=== PATIENT | female | born 1995 | race Caucasian/White ===

== ENCOUNTER 2016-07-01 16:07 | Emergency (ER) | payer OTHER ==
[~2016-07-01] VITALS: Ht 149.9 cm; Wt 73.9 kg
[2016-07-01 16:12] VITALS: BP 104/71
--- NOTE | 2016-07-01 16:48 | RADIOLOGY REPORT ---
EXAMINATION: XR ANKLE, RIGHT CLINICAL INFORMATION: Injury to right ankle. Pain. COMPARISON: None TECHNIQUE: Right ankle 3 views. of the right ankle. FINDINGS: The bones and soft tissues are normal. No fracture. Alignment is anatomic. Joint spaces are maintained. No joint effusion. IMPRESSION: Normal right ankle.
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
== END 2016-07-01 19:01 ==
LOC: ERH 16:07
DX: S93.401A Sprain of unspecified ligament of right ankle, initial encounter (principal); V48.4XXA Person boarding or alighting a car injured in noncollision transport accident, initial encounter
CPT/HCPCS: 73610-RT

== ENCOUNTER 2016-07-17 00:56 | Emergency (ER) | payer OTHER ==
[~2016-07-17] VITALS: Ht 149.9 cm; Wt 83.9 kg
--- NOTE | 2016-07-17 02:19 | ED HEAD/FACIAL INJ COMPLAINT ---
History of Present Illness General Chief Complaint: Laceration Procedure Stated Complaint: LAC TO TOP OF HEAD Source: patient Exam Limitations: no limitations Vital Signs & Intake/Output Vital Signs & Intake/Output Vital Signs Date Time Temp Pulse Resp B/P Pulse O2 O2 Flow FiO2 Ox Delivery Rate 07/17 0123 97.0 80 18 125/87 100 Room Air Allergies Coded Allergies: NO KNOWN ALLERGIES (07/01/16) Reconcile Medications No Known Home Medications Triage Note: PT FROM HOME C/O LAC TO TOP OF HEAD, PT STATES THAT AT WORK A FEW HOURS AGO SHE WAS MOVING AROUND AND HIT HER HEAD ON A CIGARETTE TREJO THAT WAS METAL AND THAT CAUSE HER HEAD TO HAVE A LAC. PT DENIES LOC. Triage Nurses Notes Reviewed? yes Onset: Abrupt Severity: mild Method of Injury: HIT HEAD ON CIGARETTE JOHN Loss of Consciousness: no loss of consciousness : No Patient currently breastfeeds: No HPI: 20 year old female presents to the ER for chief complaint of cut to the top of her head while at work at 7:20 pm. No loss of consciousness. Tetanus not up to date. She cut the top of her head on a metal cigarette box. She reports she is feeling kind of slow. Past History Travel History Traveled to [place] past 21 day No Medical History Any Pertinent Medical History? 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 No Review of Systems Review of Systems Constitutional: Denies: chills, fever. Physical Exam Physical Exam General Appearance: well developed/nourished, alert Head: ABRASION TO TOP OF HEAD Eyes: Bilateral: normal appearance, PERRL, EOMI. Ears, Nose, Throat: normal pharynx, normal ENT inspection, hearing grossly normal Neck: normal inspection, supple, full range of motion Respiratory: normal breath sounds, chest non-tender, no respiratory distress Cardiovascular: regular rate/rhythm Gastrointestinal: normal bowel sounds, soft, non-tender Back: normal inspection, normal range of motion Extremities: normal inspection, normal capillary refill, normal range of motion, no edema Psychiatric: awake, alert, oriented x 3 Cranial Nerves: normal hearing, normal speech, PERRL Coordination/Gait: normal gait Skin: intact Diagram Head: 1) ABRASION Progress Differential Diagnosis: ABRASION, CONCUSSION Plan of Care: Current Medications Sig/Alber Start time Last Medication Dose Stop Time Status Admin Ibuprofen 800 MG ONCE ONE 07/17 229 UNVr (Motrin) 07/17 230 Tetanus/Diphtheria 0.5 ML ONCE ONE 07/17 229 UNVr Toxoids Adsorbed 07/17 230 (Decavac) Departure Departure Time of Disposition: 227 Disposition: HOME OR SELF CARE Condition: Stable Clinical Impression Primary Impression: Scalp abrasion Secondary Impressions: Mild concussion Referrals: MIGUEL STANFORD,ROSALIO Casiano (PCP/Family) Additional Instructions: Take Advil as needed for pain. Put topical antibiotic ointment as prescribed. Return to the ER as needed. Departure Forms: Customer Survey General Discharge Information Prescriptions: Current Visit Scripts No Known Home Medications
[2016-07-17 02:41] VITALS: BP 128/74
== END 2016-07-17 02:42 ==
LOC: ERH 00:56
DX: S00.01XA Abrasion of scalp, initial encounter (principal); S06.0X0A Concussion without loss of consciousness, initial encounter; W22.09XA Striking against other stationary object, initial encounter
CPT/HCPCS: 90471; 90714

== ENCOUNTER 2016-07-24 00:44 | Emergency (ER) | payer OTHER ==
[2016-07-24] MEDS ORDERED: PERPHENAZINE4 M1 PO (00:58)
--- NOTE | 2016-07-24 02:24 | ED GENERAL ADULT ---
History of Present Illness General Chief Complaint: General Adult Stated Complaint: BIBA BIPOLAR, ANXIETY Source: patient, family Exam Limitations: no limitations Vital Signs & Intake/Output Vital Signs & Intake/Output Vital Signs Date Time Temp Pulse Resp B/P Pulse O2 O2 Flow FiO2 Ox Delivery Rate 07/24 0053 97.4 76 18 100/60 Allergies Coded Allergies: NO KNOWN ALLERGIES (07/01/16) Reconcile Medications Perphenazine 4 MG TABLET 4 MG PO D MENTAL HEALTH (Reported) Triage Note: ARRIVED ER VIA AMBULANCE PT STATES SHE WAS SITTING ON THE BATHROOM FLOOR BECAUSE SHE WAS NAUSEOUS AND THOUGHT SHE WAS GOING TO VOMIT AND SHE BEGAN SHAKING. REMEMBERS ENTIRE INCIDENT. PT RECENTLY STARTED TRILAFON AND THEY WHERE TOLD A POSSIBLE SIDE EFFECT WAS SEIZURE .PT IS TWITCHING SHOULDERS STATES THIS IS NOT NEW Triage Nurses Notes Reviewed? yes : No Patient currently breastfeeds: No HPI: Patient presents for evaluation of a headache and nausea status that began at about 11:00 last night, gradual in onset. Patient states in fact that her headache is now feeling better decreasing from about a 7 out of 10 to a 3 out of 10 currently. The headache feels like a numbness throbbing and pounding located in the bilateral forehead and apex. She denies any associated fever, cold symptoms, vomiting, diarrhea, rashes, recent travel or known ill contacts. She has had a diffuse abdominal pain in association with the nausea. Patient states that she does gets relatively frequent common headaches. Past History Travel History Traveled to [place] past 21 day No Medical History Any Pertinent Medical History? 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 No Review of Systems Review of Systems Constitutional: Reports: no symptoms. EENTM: Reports: no symptoms. Respiratory: Reports: no symptoms. Cardiovascular: Reports: no symptoms. GI: Reports: see HPI. Genitourinary: Reports: no symptoms. Musculoskeletal: Reports: no symptoms. Skin: Reports: no symptoms. Neurological/Psychological: Reports: see HPI. Hematologic/Endocrine: Reports: no symptoms. Immunologic/Allergic: Reports: no symptoms. All Other Systems: Reviewed and Negative Physical Exam Physical Exam General Appearance: SEE BELOW Comments: Gen.: Well-nourished, well-developed, no acute respiratory distress. Head: Normocephalic, atraumatic. Eyes: Normal inspection bilaterally Ears: Normal inspection bilaterally Nose: Normal inspection Throat/mouth : Moist mucosa Neck: Supple, full range of motion, no goiter Heart: Regular rate and rhythm, no murmurs rubs or gallops Lungs: Clear to auscultation bilaterally with normal air entry Chest: Nontender Back: Normal range of motion Abdomen: Soft, nontender, nondistended, normal bowel sounds Extremities: Normal range of motion grossly, equal radial pulses, no cyanosis clubbing or edema Neurologic: Cranial nerves grossly intact, speech is clear Skin: warm and dry Psychiatric: Calm, cooperative, no apparent delusions or hallucinations Core Measures ACS in differential dx? No CVA/TIA Diagnosis: No Severe Sepsis Present: No Septic Shock Present: No Progress Differential Diagnoses I considered the following diagnoses in my evaluation of the patient: Common headache, migraine headache, medication side effect Plan of Care: Current Medications Sig/Alber Start time Last Medication Dose Stop Time Status Admin Promethazine HCl 25 MG ONCE ONE 07/24 229 UNVr (Phenergen) 07/24 230 Initial ED EKG: none Comments: 07/24/2016 3:43:44 AM Zeina is asleep and her father feels that she is much more comfortable now. Departure Departure Disposition: HOME OR SELF CARE Condition: Stable Clinical Impression Primary Impression: Headache Qualifiers: Headache type: unspecified Headache chronicity pattern: acute headache Intractability: not intractable Qualified Code: R51 - Headache Referrals: MIGUEL STANFORD,ROSALIO Casiano (PCP/Family) Additional Instructions: Get a few more hours of sleep. Follow-up with your primary care doctor tomorrow if her headache persists. Return if any concerns or sudden worsening. Departure Forms: Customer Survey General Discharge Information Critical Care Note Critical Care Note Critical Care Time: non-applicable
[2016-07-24 03:59] VITALS: BP 104/62
== END 2016-07-24 04:00 ==
LOC: ERH 00:44
DX: R51 Headache (principal); R11.0 Nausea
CPT/HCPCS: 96372; J2550

== ENCOUNTER 2016-08-02 23:56 | Emergency (ER) | payer OTHER ==
[~2016-08-02] VITALS: Ht 149.9 cm; Wt 82.6 kg
[~2016-08-02 23:56] MED LIST: PERPHENAZINE4 M1 PO
--- NOTE | 2016-08-03 01:05 | ED GENERAL ADULT ---
History of Present Illness General Chief Complaint: General Adult Stated Complaint: PT "TWITCHING" FULL BODY Source: patient, old records, friend Exam Limitations: no limitations Vital Signs & Intake/Output Vital Signs & Intake/Output Vital Signs Date Time Temp Pulse Resp B/P Pulse O2 O2 Flow FiO2 Ox Delivery Rate 08/03 0112 97.5 87 16 103/77 96 Allergies Coded Allergies: NO KNOWN ALLERGIES (07/01/16) Reconcile Medications Perphenazine 4 MG TABLET 4 MG PO D MENTAL HEALTH (Reported) Triage Nurses Notes Reviewed? yes HPI: Patient was laying in bed when she suddenly began to shake all over. Patient was cognizant of everything that was going on and was able to communicate with her boyfriend as well as her parents during the episode. Similar symptoms in the past. The shaking lasted for over 20 minutes so she decided to come in to the emergency room for evaluation. While in the waiting room the shaking episode stopped. There is no incontinence. Patient denies any headache. Patient states that she has been under a lot of stress lately. Patient has been working with her therapist but her therapist also wants her to see a neurologist to rule out neurological causes of these episodes. Denies any suicidal or homicidal ideations. Past History Medical History Any Pertinent Medical History? 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 No Review of Systems Review of Systems Constitutional: Reports: no symptoms. Respiratory: Reports: no symptoms. Cardiovascular: Reports: no symptoms. GI: Reports: no symptoms. Musculoskeletal: Reports: no symptoms. Neurological/Psychological: Reports: see HPI. Immunologic/Allergic: Reports: no symptoms. Physical Exam Physical Exam General Appearance: well developed/nourished, alert, awake, anxious, mild distress Head: atraumatic Eyes: Bilateral: PERRL, EOMI. Ears, Nose, Throat: normal pharynx, normal ENT inspection, hearing grossly normal Neck: normal inspection, supple, full range of motion Respiratory: normal breath sounds, chest non-tender, no respiratory distress, lungs clear Cardiovascular: regular rate/rhythm, normal peripheral pulses Gastrointestinal: normal bowel sounds, soft, non-tender, no organomegaly Back: normal inspection Extremities: normal inspection, normal capillary refill, normal range of motion, no edema Neurologic/Psych: no motor/sensory deficits, awake, alert, oriented x 3, normal gait, normal mood/affect Skin: intact, normal color, warm/dry Core Measures ACS in differential dx? No CVA/TIA Diagnosis: No Severe Sepsis Present: No Septic Shock Present: No Progress Differential Diagnoses I considered the following diagnoses in my evaluation of the patient: [Episodic shaking of neurological first psychological origin] Plan of Care: Orders Procedure Date/time Status URINE DRUG SCREEN FOR ER ONLY 08/03 58 Complete URINALYSIS 08/03 58 Active THYROID STIMULATING HORMONE 08/03 58 Complete HUMAN BETA HCG SCREEN 08/03 58 Complete ETHANOL 08/03 58 Complete COMPREHENSIVE METABOLIC PANEL 08/03 58 Complete CBC WITHOUT DIFFERENTIAL 08/03 58 Complete Laboratory Tests 08/03/16 0120: Serum Alcohol < 10.0 08/03/16 0120: Anion Gap 8, Estimated GFR > 60, BUN/Creatinine Ratio 17.5, Glucose 89, Calcium 9.7, Total Bilirubin 0.3, AST 24, ALT 37, Alkaline Phosphatase 70, Total Protein 6.9, Albumin 4.1, Globulin 2.8, Albumin/Globulin Ratio 1.5, TSH 2.040, Total Beta HCG NEGATIVE, CBC w Diff NO MAN DIFF REQ, RBC 4.70, MCV 78.5 L, MCH 27.5, RDW 12.7, MPV 8.9, Gran % 52.2, Lymphocytes % 40.6, Monocytes % 4.8, Eosinophils % 2.1, Basophils % 0.3, Absolute Granulocytes 4.8, Absolute Lymphocytes 3.7 H, Absolute Monocytes 0.4, Absolute Eosinophils 0.2, Absolute Basophils 0, PUBS MCHC 35.1, Urine Opiates Screen < 100.00, Methadone Screen < 40, Barbiturate Screen < 60, Ur Phencyclidine Scrn < 6.00, Amphetamines Screen < 100, U Benzodiazepines Scrn < 85, Urine Cocaine Screen < 50, Urine Cannabis Screen 5.50 , Urine Color Pending, Urine Clarity Pending, Urine pH Pending, Ur Specific [place] Pending, Urine Protein Pending, Urine Ketones Pending, Urine Nitrite Pending, Urine Bilirubin Pending, Urine Urobilinogen Pending, Ur Leukocyte Esterase Pending, Ur Microscopic Pending, Urine Hemoglobin Pending, Urine Glucose Pending Initial ED EKG: none Departure Departure Disposition: HOME OR SELF CARE Condition: Stable Clinical Impression Primary Impression: Shaking Referrals: MARY BETH STANFORD,BROOKE RIVERA MD,ROSALIO Casiano (PCP/Family) Additional Instructions: FOLLOW UP WITH DR. CLINTON TO EVALUATED NEUROLOGICAL CAUSES. FOLLOW UP WITH YOUR THERAPIST RETURN IF SHAKING STARTS AGAIN AND LASTS FOR MORE THAN 10 MINUTES OR FOR ANY CONCERNS Departure Forms: Customer Survey General Discharge Information Critical Care Note Critical Care Note Critical Care Time: non-applicable
[2016-08-03 01:34] LABS: ABSOLUTE BASOPHIL COUNT 0 /CUMM (0.0-0.2); ABSOLUTE EOSINOPHIL COUNT 0.2 /CUMM (0.0-0.7); ABSOLUTE GRANULOCYTE CT 4.8 /CUMM (1.4-6.5); ABSOLUTE LYMPH COUNT 3.7 /CUMM (1.2-3.4); ABSOLUTE MONOCYTE COUNT 0.4 /CUMM (0.10-0.60); BASOPHIL % 0.3 % (0.0-2.0); EOSINOPHIL % 2.1 % (0-5); GRANULOCYTE % 52.2 % (42.2-75.2); HEMATOCRIT 36.9 % (37-47); MEAN CORPUSCULAR HGB 27.5 PG (27.0-31.0); MEAN CORPUSCULAR HGB CONC 35.1 G/DL (33.0-37.0); MEAN CORPUSCULAR VOLUME 78.5 FL (81.0-99.0); MEAN PLATELET VOLUME 8.9 FL (7.4-10.4); PLATELET COUNT 253 /CUMM (130-400); RBC DISTRIBUTION WIDTH 12.7 % (11.5-14.5); WHITE BLOOD CELL COUNT 9.2 /CUMM (4.8-10.8)
[2016-08-03 03:05] VITALS: BP 111/69
== END 2016-08-03 03:22 ==
LOC: ERH 23:56
PROVIDERS: Emergency Medicine
DX: R25.1 Tremor, unspecified (principal); F10.10 Alcohol abuse, uncomplicated
CPT/HCPCS: 80307; 81001; G0480

== ENCOUNTER 2016-08-06 14:32 | Emergency (ER) | payer OTHER ==
[~2016-08-06] VITALS: Ht 149.9 cm; Wt 83.5 kg
--- NOTE | 2016-08-06 15:36 | ED PSYCHIATRIC COMPLAINT ---
History of Present Illness General Chief Complaint: General Adult Stated Complaint: ANXIETY; PANIC ATTACK Source: patient Exam Limitations: no limitations Vital Signs & Intake/Output Vital Signs & Intake/Output Vital Signs Date Time Temp Pulse Resp B/P Pulse O2 O2 Flow FiO2 Ox Delivery Rate 08/06 1701 98.0 77 18 118/78 99 Room Air 08/06 1445 98.6 106 16 122/85 100 Room Air ED Intake and Output 08/07 0000 08/06 1200 Intake Total Output Total Balance Patient 184 lb Weight Allergies Coded Allergies: NO KNOWN ALLERGIES (07/01/16) Reconcile Medications Perphenazine 4 MG TABLET 4 MG PO D MENTAL HEALTH (Reported) Triage Note: PT TO ED FOR ANXIETY, REPORTING SHE SAW AN OLD FRIEND WHO SHE PREVIOUSLY HAD ROMANTIC FEELINGS FOR AND "I NEVER GOT CLOSURE AND HE WANTS NOTHING TO DO WITH ME SO IT KIND OF ALL JUST CAME OUT" PT VERY TEARFUL IN TRIAGE, HYPERVENTILATING, ABLE TO VERBALLY DEESCALATE PATIENT. PT'S FATHER BROUGHT HER TO ED "AND I DONT WANT HIM HERE BECAUSE HE THINK THIS IS ALL FROM ME SMOKING WEED LAST NIGHT" PT DENIES SI/HI, AH/VH. Triage Nurses Notes Reviewed? yes : No Patient currently breastfeeds: No HPI: 20 yo F PMH Bipolar Disorder presenting with anxiety, tachypnea. 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 Patient had co-worker call EMS, symptoms self-resolved en route to ED. Patient has had more mild epsiodes in the past with hyperventilation and nervousness. No complaints at this time, denies fevers, chills, CP, SOB, palpitations, AP, N/V, LE swelling/ pain. Patient denies SI, plan, intent, no prior Hx of SI or suicide attempts, no FH of suicide, patient is future oriented. Denies recent manic Sx, AH, VH, HI. Sees outpatient therapist and [facility]S [facility]RICATOR and [facility], no medications. Denies recent EtOH, Marijuana use 2-3x per week, last used last night. Lives with mother and father, feels safe at home. (CHANDRAKANT DAVIS MD) Past History Travel History Traveled to [place] past 21 day No Medical History Any Pertinent Medical History? 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 Yes (CHANDRAKANT DAVIS MD) Review of Systems Review of Systems Constitutional: Reports: no symptoms. EENTM: Reports: no symptoms. Respiratory: Reports: short of breath. Denies: cough, orthopnea, sputum production, wheezing. Cardiovascular: Reports: palpitations. Denies: chest pain, orthopena, peripheral edema, syncope. GI: Reports: no symptoms. Genitourinary: Reports: no symptoms. Musculoskeletal: Reports: no symptoms. Skin: Reports: no symptoms. Neurological/Psychological: Reports: depressed, numbness, tingling, tremors. Denies: headache. Hematologic/Endocrine: Reports: no symptoms. Immunologic/Allergic: Reports: no symptoms. All Other Systems: Reviewed and Negative (CHANDRAKANT DAVIS MD) Physical Exam Physical Exam General Appearance: well developed/nourished, no apparent distress, alert, awake Head: atraumatic Eyes: Bilateral: normal appearance. Ears, Nose, Throat: normal pharynx, normal ENT inspection Neck: normal inspection, supple, full range of motion Respiratory: normal breath sounds, no respiratory distress, lungs clear Cardiovascular: regular rate/rhythm, normal peripheral pulses Neurological/Psychiatric: no motor/sensory deficits, awake, alert, normal mood/ affect, calm, rib knitter II-XII nml as tested Appearance/Memory/Insight: appropriate appearance Behavoir/Eye Contact/Speech: cooperative, normal speech, good eye contact Thoughts/Hallucinations: normal thought pattern, no apparent hallucination, Denie SI, HI, plan, intent SAD PERSONS Done? patient not suicidal (CHANDRAKANT DAVIS MD) Progress Differential Diagnosis: Anxiety, Panic attack, Stres response, Low concern for PE, PTX, or other organic etiology Plan of Care: Physician MDM: 20 yo F presenting with anxiety, hyperventilation. HR 90s during examination, VSS, remainder of exam as above. DDx: Anxiety, Panic attack, stress response, low concern for PTX, PE, PNA or other organic eriology of Sx. Monitored in ED without reoccurance of Sx. Symptomatic management of panic attacks (acute and chronic meds) discussed with patient and mother, plan to f/u with outpatient providers at [facility] in the next 2-3 days for further evaluation and management. Patient denies SI, plan, or intent to multiple providers, she does not pose an acute threat to herself or others. D/Rich with return precautions. D/W Dr. Puri. (SUSAN STANFORD,CHANDRAKANT) Departure Departure Disposition: HOME OR SELF CARE Condition: Stable Clinical Impression Primary Impression: Panic attack as reaction to stress Referrals: LASHA CALDERÓN,ANTOINETTE RIVERA MD,ROSALIO Casiano (PCP/Family) Additional Instructions: Follow up with Antoinette Loza in the next 2-3 days to discuss your panic attack. Return to the ED for any new, worsening, or concerning symptoms. Departure Forms: Customer Survey General Discharge Information (SUSAN STANFORD,HCANDRAKANT) PA/[employer] Co-Sign Statement Statement: ED Attending supervision documentation- [] I saw and evaluated the patient. I have also reviewed all the pertinent lab results and diagnostic results. I agree with the findings and the plan of care as documented in the PA's/MILLER KILN D[employer] S[employer]'s documentation. [X] I have reviewed the ED Record and agree with the PA's/MILL[employer] KILN [employer]'s documentation. [] Additions or exceptions (if any) to the PAs/MILLER KILN DRI[employer] SALT's note and plan are summarized below: [] Resident Co-Sign Statement Statement: ED Attending supervision documentation- [X] I saw and evaluated the patient. I have also reviewed all the pertinent lab results and diagnostic results. I agree with the findings and the plan of care as documented in the Resident's documentation. [X] I have reviewed the ED Record and agree with the Resident's documentation. [] Additions or exceptions (if any) to the Resident's note and plan are summarized below: [] (MAITE STANFORD,MARÍA)
[2016-08-06 17:01] VITALS: BP 118/78
== END 2016-08-06 17:01 ==
LOC: ERH 14:32
DX: F43.0 Acute stress reaction (principal)

== ENCOUNTER 2016-08-17 02:06 | Emergency (ER) | payer OTHER ==
[2016-08-17 02:08] VITALS: BP 142/82
--- NOTE | 2016-08-17 02:15 | ED GENERAL ADULT ---
History of Present Illness General Chief Complaint: General Adult Stated Complaint: BIBA ANXIETY, ?SYNCOPE Source: patient Exam Limitations: no limitations Vital Signs & Intake/Output Vital Signs & Intake/Output Vital Signs Date Time Temp Pulse Resp B/P Pulse O2 O2 Flow FiO2 Ox Delivery Rate 08/17 0253 Room Air 08/17 0208 97.2 97 18 142/82 98 Room Air Allergies Coded Allergies: NO KNOWN ALLERGIES (07/01/16) Reconcile Medications Perphenazine 4 MG TABLET 4 MG PO D MENTAL HEALTH (Reported) Triage Nurses Notes Reviewed? yes Onset: Abrupt Duration: minute(s): Timing: single episode today Injury Environment: neighbor's Severity: moderate Modifying Factors: Improves With: rest. Associated Symptoms: "I have really bad anxiety." : No Patient currently breastfeeds: No HPI: 20-year-old woman history of anxiety, followed by a counselor, presents with an episode of syncope. She states that she was sitting on the sofa. Her friends were smoking. She states, "the smoke really bothers me. My panic is really bad. I think I had a panic attack. I passed out briefly. Now I feel fine. I wanted go home." He had no chest pain shortness of breath diaphoresis or palpitations. She states this has happened to her before. The workup had thus far been unremarkable. Past History Travel History Traveled to [place] past 21 day No Medical History Any Pertinent Medical History? 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 No Review of Systems Review of Systems Constitutional: Reports: no symptoms. EENTM: Reports: no symptoms. Respiratory: Reports: no symptoms. Cardiovascular: Reports: no symptoms. GI: Reports: no symptoms. Genitourinary: Reports: no symptoms. Musculoskeletal: Reports: no symptoms. Skin: Reports: no symptoms. Neurological/Psychological: Reports: no symptoms. Hematologic/Endocrine: Reports: no symptoms. Immunologic/Allergic: Reports: no symptoms. All Other Systems: Reviewed and Negative Physical Exam Physical Exam General Appearance: well developed/nourished, no apparent distress, alert, anxious Head: atraumatic, normal appearance Eyes: Bilateral: normal appearance, PERRL, EOMI. Ears, Nose, Throat: normal pharynx, normal ENT inspection Neck: normal inspection, supple, full range of motion Respiratory: normal breath sounds, chest non-tender, no respiratory distress, quiet respiration, lungs clear Cardiovascular: regular rate/rhythm Gastrointestinal: normal bowel sounds, soft, non-tender, no organomegaly Back: normal inspection, normal range of motion Extremities: normal inspection Neurologic/Psych: no motor/sensory deficits, awake, alert, oriented x 3 Skin: intact, normal color, warm/dry Core Measures ACS in differential dx? No CVA/TIA Diagnosis: No Severe Sepsis Present: No Septic Shock Present: No Progress Differential Diagnoses I considered the following diagnoses in my evaluation of the patient: Vasovagal episode versus seizure versus syncope versus other. Plan of Care: Orders Procedure Date/time Status EKG 08/17 214 Active Initial ED EKG: normal axis, normal intervals, normal p-waves, normal QRS complex, normal sinus rhythm Departure Departure Disposition: HOME OR SELF CARE Condition: Stable Clinical Impression Primary Impression: Panic attack Secondary Impressions: Vasovagal syncope Referrals: MIGUEL STANFORD,ROSALIO Casiano (PCP/Family) Departure Forms: Customer Survey General Discharge Information Comments Patient feels well in the ED. This is similar to her prior episodes. EKG benign. I advocated close follow-up with her primary care doctor, her counselor , her neurologist. Critical Care Note Critical Care Note Critical Care Time: non-applicable
--- NOTE | 2016-08-25 17:18 | OP PSYCH DISCHARGE ---
OUTPATIENT PSYCH DISCHARGE FIRST APPOINTMENT DATE: 06/01/12 LAST CONTACT DATE: 04/24/15 FOCUS OF TREATMENT- SYMPTOMS/ISSUES: Depression Anxiety TOTAL NUMBER OF SESSIONS: > 20 SESSIONS TYPE OF TREATMENT: INDIVIDUAL, THERAPY GROUP, MEDICATION STATUS OF LAST CONTACT: FOCUS OF TREATMENT WAS: MODERATE IMPROVEMENT, MINIMAL IMPROVEMENT REASON FOR DISCHARGE: Changed to a differrent level of care, more suitable to her needs DSM5/PS Stressors/Medical Prob Diagnosis' (DSM 5, Stressors, Medical): Unspecified Depressive Disorder JD Obese Current GAF: 50% Medication List Current Psychiatric Med(s): Abilify 20 mg po daily Lexapro 20 mg po daily
== END 2016-08-17 03:05 ==
LOC: ERH 02:06
DX: F41.0 Panic disorder [episodic paroxysmal anxiety] (principal); R55 Syncope and collapse
CPT/HCPCS: 93005; 93010

== ENCOUNTER 2016-09-02 19:24 | Emergency (ER) | payer OTHER ==
[~2016-09-02] VITALS: Ht 147.3 cm; Wt 77.1 kg
--- NOTE | 2016-09-02 19:57 | ED GENERAL ADULT ---
History of Present Illness General Chief Complaint: General Adult Stated Complaint: PT IS HAVING PROBLEM BREATHING,SHAKING, Source: patient Exam Limitations: no limitations Vital Signs & Intake/Output Vital Signs & Intake/Output Vital Signs Date Time Temp Pulse Resp B/P Pulse O2 O2 Flow FiO2 Ox Delivery Rate 09/03 1947 Room Air 09/02 1933 97.8 88 24 97 ED Intake and Output 09/03 0000 09/02 1200 Intake Total 0 Output Total Balance 0 Intake, Oral 0 Patient 170 lb Weight Allergies Coded Allergies: NO KNOWN ALLERGIES (07/01/16) Reconcile Medications Perphenazine 4 MG TABLET 4 MG PO D MENTAL HEALTH (Reported) Triage Note: PER PT ?ANXIETY ATTACK. FEELING TREMORS AND WON'T STOP. HANDS TWITHCHING PT DENIES CP Triage Nurses Notes Reviewed? yes : No Patient currently breastfeeds: No HPI: 20 yo woman presents after an episode whee se fell safitiaee had an episode, lasted a few minutes, and self resolved. She now feels well and would like to go home. She denies drug abuse, SI/HI. She wishes to leave in the company of her [employer]. Past History Travel History Traveled to [place] past 21 day No Medical History Any Pertinent Medical History? 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 No Review of Systems Review of Systems Constitutional: Reports: no symptoms. EENTM: Reports: no symptoms. Respiratory: Reports: no symptoms. Cardiovascular: Reports: no symptoms. GI: Reports: no symptoms. Genitourinary: Reports: no symptoms. Musculoskeletal: Reports: no symptoms. Skin: Reports: no symptoms. Neurological/Psychological: Reports: no symptoms. Hematologic/Endocrine: Reports: no symptoms. Immunologic/Allergic: Reports: no symptoms. All Other Systems: Reviewed and Negative Physical Exam Physical Exam General Appearance: well developed/nourished, no apparent distress, alert, comfortable Head: atraumatic, normal appearance Eyes: Bilateral: normal appearance. Ears, Nose, Throat: normal pharynx, normal ENT inspection Neck: normal inspection, supple, full range of motion Respiratory: normal breath sounds, chest non-tender, no respiratory distress, quiet respiration, lungs clear Cardiovascular: edema Gastrointestinal: normal bowel sounds, soft, non-tender, no organomegaly Back: normal inspection, normal range of motion, vertebral tenderness Extremities: normal inspection, normal capillary refill, normal range of motion, no edema Neurologic/Psych: no motor/sensory deficits Skin: intact, normal color, warm/dry Core Measures ACS in differential dx? No CVA/TIA Diagnosis: No Severe Sepsis Present: No Septic Shock Present: No Progress Differential Diagnoses I considered the following diagnoses in my evaluation of the patient: panic vs other psyche issues. Plan of Care: well appearing, gave rx for zofran, advocated close follow up. Initial ED EKG: none Departure Departure Disposition: HOME OR SELF CARE Condition: Stable Clinical Impression Primary Impression: Bipolar disorder Referrals: MIGUEL STANFORD,ROSALIO Casiano (PCP/Family) Departure Forms: Customer Survey General Discharge Information Critical Care Note Critical Care Note Critical Care Time: 30-74 min
== END 2016-09-02 20:10 ==
LOC: ERH 19:24
DX: F31.9 Bipolar disorder, unspecified (principal)

== ENCOUNTER 2016-09-18 01:41 | Emergency (ER) | payer OTHER ==
--- NOTE | 2016-09-18 01:54 | ED GENERAL ADULT ---
History of Present Illness General Chief Complaint: Syncope and Near-Syncope Stated Complaint: ? SEIZURE Source: patient, family, old records, EMS, friend Exam Limitations: no limitations Vital Signs & Intake/Output Vital Signs & Intake/Output Vital Signs Date Time Temp Pulse Resp B/P B/P Pulse O2 O2 Flow FiO2 Mean Ox Delivery Rate 09/18 0205 97.0 82 20 107/61 98 Room Air Allergies Coded Allergies: NO KNOWN ALLERGIES (07/01/16) Reconcile Medications Aripiprazole (Abilify) 5 MG TABLET 1 TAB PO DAILY BIPOLAR (Reported) Perphenazine 4 MG TABLET 4 MG PO D MENTAL HEALTH (Reported) Triage Nurses Notes Reviewed? yes HPI: Patient was getting ready for bed when both of her arms began to shake. Patient has had similar symptoms in the past. Patient states that when she is able to calm down and the symptoms usually resolve. Patient does have an appointment with Dr. Monson on this Monday for further evaluation. Tonight the shaking did not stop so 911 was called. Patient denies any headache or tinnitus. There is no blurry vision. There is no nausea or vomiting. There is no chest pain or shortness of breath. Patient denies any numbness or tingling. Patient states that she has been off of her Abilify for the past 5 days. Past History Travel History Traveled to [place] past 21 day No Medical History Any Pertinent Medical History? 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 No Review of Systems Review of Systems Constitutional: Reports: no symptoms. EENTM: Reports: no symptoms. Respiratory: Reports: no symptoms. Cardiovascular: Reports: no symptoms. GI: Reports: no symptoms. Genitourinary: Reports: no symptoms. Musculoskeletal: Reports: no symptoms. Skin: Reports: no symptoms. Neurological/Psychological: Reports: see HPI. Hematologic/Endocrine: Reports: no symptoms. Immunologic/Allergic: Reports: no symptoms. All Other Systems: Reviewed and Negative Physical Exam Physical Exam General Appearance: well developed/nourished, alert, awake, anxious, mild distress Head: atraumatic, normal appearance Eyes: Bilateral: PERRL, EOMI. Ears, Nose, Throat: normal pharynx, normal ENT inspection, hearing grossly normal Neck: normal inspection, supple, full range of motion Respiratory: normal breath sounds, chest non-tender, no respiratory distress, lungs clear Cardiovascular: regular rate/rhythm, normal peripheral pulses Gastrointestinal: normal bowel sounds, soft, non-tender Back: normal inspection, normal range of motion Extremities: normal inspection, normal capillary refill, normal range of motion, no edema Neurologic/Psych: no motor/sensory deficits, awake, alert, oriented x 3, normal mood/affect Skin: intact, normal color, warm/dry Lymphatic: no anterior cervical chante Comments: Moderate tremor to both arms. Patient is able to stop the tremors when she concentrates on stopping them. Core Measures ACS in differential dx? No CVA/TIA Diagnosis: No Severe Sepsis Present: No Septic Shock Present: No Progress Differential Diagnoses I considered the following diagnoses in my evaluation of the patient: [ Medication reaction, pseudoseizures, petit mal seizures, anxiety] Plan of Care: Orders Procedure Date/time Status URINE DRUGS OF ABUSE 09/18 152 Complete URINALYSIS 09/18 152 Complete HUMAN BETA HCG SCREEN 09/18 152 Complete ETHANOL 09/18 152 Complete COMPREHENSIVE METABOLIC PANEL 09/18 152 Complete CBC WITHOUT DIFFERENTIAL 09/18 152 Complete Laboratory Tests 09/18/16 0235: Urine Opiates Screen < 100.00, Methadone Screen < 40, Barbiturate Screen < 60, Ur Phencyclidine Scrn < 6.00, Amphetamines Screen < 100, U Benzodiazepines Scrn < 85, Urine Cocaine Screen < 50, Urine Cannabis Screen < 5.00 09/18/16 0220: Anion Gap 11, Estimated GFR > 60, BUN/Creatinine Ratio 17.1, Glucose 125 H, Calcium 9.1, Total Bilirubin 0.3, AST 17, ALT 33, Alkaline Phosphatase 66, Total Protein 7.2, Albumin 4.2, Globulin 3.0, Albumin/Globulin Ratio 1.4, Total Beta HCG NEGATIVE, CBC w Diff NO MAN DIFF REQ, RBC 4.93, MCV 79.5 L, MCH 27.4, RDW 12.4, MPV 8.6, Gran % 84.1 H, Lymphocytes % 15.0 L, Monocytes % 0.7 L, Eosinophils % 0, Basophils % 0.2, Absolute Granulocytes 8.9 H, Absolute Lymphocytes 1.6, Absolute Monocytes 0.1 L, Absolute Eosinophils 0, Absolute Basophils 0, PUBS MCHC 34.4, Serum Alcohol < 10.0 09/18/16 0216: Urinalysis MANY H, Urine Color YEL, Urine Clarity HAZY H, Urine pH 7.5, Ur Specific [place] 1.015, Urine Protein NEG, Urine Ketones NEG, Urine Nitrite NEG, Urine Bilirubin NEG, Urine Urobilinogen 0.2, Ur Leukocyte Esterase NEG, Ur Microscopic SEDIMENT EXAMINED, Urine RBC RARE, Ur Epithelial Cells MANY H, Urine Hemoglobin TRACE-INTACT, Urine Glucose NEG Initial ED EKG: none Comments: Patient states that she has an appointment with Dr. Monson for this Monday for evaluation of these tremors. Patient's father called yelling that we keep telling his daughter that there is nothing wrong but he knows that there is something wrong because her internal medicine doctor told her that something is wrong. When I asked what it was that her doctor told her what was wrong he states that he is not going to tell me because he is going to talk with his turret punch operator. Patient's father then became very belligerent on the phone About how we killed multiple members of his family and amputated limbs of other members of his family. Patient's father then escalated given 1 the phone and screaming into the phone. At that point I told him I cannot give him any medical information over the phone but I would be glad to talk to him here in the department about his daughter's care. Departure Departure Disposition: HOME OR SELF CARE Condition: Stable Clinical Impression Primary Impression: Occasional tremors Referrals: MARY BETH STANFORD,BROOKE RIVERA MD,ROSALIO Casiano (PCP/Family) Additional Instructions: Follow-up with Dr. Monson at your appointment on Monday for further evaluation and treatment. Hold the melatonin for now to see if you have improvement of your symptoms. Departure Forms: Customer Survey General Discharge Information Critical Care Note Critical Care Note Critical Care Time: non-applicable
[2016-09-18] MEDS ORDERED: ABILIFY5 M1 PO (02:07)
[2016-09-18 02:25] LABS: ABSOLUTE BASOPHIL COUNT 0 /CUMM (0.0-0.2); ABSOLUTE EOSINOPHIL COUNT 0 /CUMM (0.0-0.7); ABSOLUTE GRANULOCYTE CT 8.9 /CUMM (1.4-6.5); ABSOLUTE LYMPH COUNT 1.6 /CUMM (1.2-3.4); ABSOLUTE MONOCYTE COUNT 0.1 /CUMM (0.10-0.60); BASOPHIL % 0.2 % (0.0-2.0); EOSINOPHIL % 0 % (0-5); HEMATOCRIT 39.2 % (37-47); MEAN CORPUSCULAR HGB 27.4 PG (27.0-31.0); MEAN CORPUSCULAR HGB CONC 34.4 G/DL (33.0-37.0); MEAN CORPUSCULAR VOLUME 79.5 FL (81.0-99.0); MEAN PLATELET VOLUME 8.6 FL (7.4-10.4); PLATELET COUNT 252 /CUMM (130-400); RBC DISTRIBUTION WIDTH 12.4 % (11.5-14.5); RED BLOOD CELL CT 4.93 /CUMM (4.20-5.40); WHITE BLOOD CELL COUNT 10.6 /CUMM (4.8-10.8)
[2016-09-18 02:27] LABS: GRANULOCYTE % 84.1 % (42.2-75.2)
[2016-09-18 03:35] VITALS: BP 110/70
== END 2016-09-18 03:36 ==
LOC: ERH 01:41
PROVIDERS: Emergency Medicine
DX: R25.1 Tremor, unspecified (principal)
CPT/HCPCS: 80307; 81001; G0480

== ENCOUNTER 2016-10-05 22:33 | Emergency (ER) | payer OTHER ==
[~2016-10-05] VITALS: Ht 147.3 cm; Wt 85.3 kg
[~2016-10-05 22:33] MED LIST changes: +ABILIFY5 M1 PO
[2016-10-05 22:41] VITALS: BP 123/56
--- NOTE | 2016-10-05 23:06 | ED DYSPNEA/ASTHMA COMPLAINT ---
History of Present Illness General Chief Complaint: Upper Respiratory Sx/Fever Stated Complaint: COUGHING, SNEEZING Source: patient Exam Limitations: no limitations Allergies Coded Allergies: NO KNOWN ALLERGIES (07/01/16) Triage Note: PT TO ED FOR COUGH X 2-3 DAYS, SAW PCP WHO PRESCRIBED PREDNISONE WHICH SHE DID NOT TAKE "BECAUSE THATS FOR ALLERGIES AND I DON'T HAVE ALLERGIES I HAVE BRONCHITIS" Triage Nurses Notes Reviewed? yes : No Patient currently breastfeeds: No HPI: This patient is a 20 year old female who presented for evaluation of cough x3 days. She reported that she saw her PCP who prescribed prednisone which she has not taken yet. She reported coughing increased today with associated sharp chest pain with coughing. She reported clear-white sputum production. Runny nose and sneezing. Tactile fevers and chills. No difficulty breathing or abdominal pain. (SEVERINO PHAM,EILEEN) Vital Signs & Intake/Output Vital Signs & Intake/Output Vital Signs Date Time Temp Pulse Resp B/P B/P Pulse O2 O2 Flow FiO2 Mean Ox Delivery Rate 10/05 2326 100 Room Air 10/05 2241 97.5 98 18 123/56 100 Room Air ED Intake and Output 10/06 0000 10/05 1200 Intake Total Output Total 150 Balance -150 Output, Urine 150 Patient 188 lb Weight Weight Reported by Patient Measurement Method Reconcile Medications Aripiprazole (Abilify) 5 MG TABLET 1 TAB PO DAILY BIPOLAR (Reported) Azithromycin 250 MG TABLET 1 DP PO AD 2 the first day followed by 1 for days 2-5 Benzonatate (Tessalon Perle) 100 MG CAPSULE 1 CAP PO TID PRN cough Perphenazine 4 MG TABLET 4 MG PO D MENTAL HEALTH (Reported) (EMMA STANFORD,ALLAN Xiong) Past History Travel History Traveled to [place] past 21 day No Medical History Any Pertinent Medical History? see below for history Neurological: NONE EENT: NONE Cardiovascular: syncope Respiratory: asthma Gastrointestinal: NONE Hepatic: NONE Renal: NONE Musculoskeletal: NONE Psychiatric: anxiety, bipolar disease Endocrine: NONE Blood Disorders: NONE Cancer(s): NONE GROUP DIRECTOR/Reproductive: NONE Other Medical Hx: Insomnia Tetanus Vaccine: 07/17/16 Surgical History Surgical History: non-contributory Psychosocial History Who do you live with Friend Services at Home None What is your primary language Tongan Tobacco Use: Never used ETOH Use: denies use Illicit Drug Use: denies illicit drug use Family History Hx Contributory? No (SEVERINO PHAM,EILEEN) Review of Systems Review of Systems Constitutional: Reports: see HPI. EENTM: Reports: see HPI. Respiratory: Reports: see HPI. Cardiovascular: Reports: see HPI. GI: Reports: no symptoms. Genitourinary: Reports: no symptoms. Musculoskeletal: Reports: no symptoms. Skin: Reports: no symptoms. Neurological/Psychological: Reports: no symptoms. All Other Systems: Reviewed and Negative (SEVERINO PHAM,EILEEN) Physical Exam Physical Exam Respiratory: normal breath sounds, chest non-tender, no respiratory distress, no wheezes, rales or rhonchi. no stridor Comments: General: Well-developed, well-nourished person in no acute distress HEENT: Nasal congestion noted, moist mucous membranes Neck: Supple Back: Normal gait Cardiovascular: RRR with no murmurs Neuro: A&Ox3 Psych: Mood and affect normal Core Measures ACS in differential dx? Yes Severe Sepsis Present: No Septic Shock Present: No (SEVERINO PHAM,EILEEN) Progress Differential Diagnosis: asthma, AMI, bronchitis, costochondritis, pericarditis, pulmonary embolism, pneumonia, unstable angina, pleuritis Plan of Care: Orders Procedure Date/time Status URINE 10/05 2300 Complete Laboratory Tests 10/05/16 2313: Urine Test NEGATIVE Diagnostic Imaging: Viewed by Me: Radiology Read. Discussed w/RAD: Radiology Read. CXR Impression: PATIENT: NICHOLAS FAUST PRESENT AGE: 20 PATIENT ACCOUNT NO: [id number] : 93 LOCATION: [facility] ORDERING PHYSICIAN: EILEEN HAQ PA-C SERVICE DATE: 10/05/16 EXAM TYPE: RAD - XRY-CHEST XRAY, PA AND LATERAL EXAMINATION: XR CHEST CLINICAL INFORMATION: Cough. COMPARISON: None TECHNIQUE: 2 views of the chest were obtained. FINDINGS: No significant abnormality is noted involving the heart, lungs, mediastinum, bony thorax or soft tissues. IMPRESSION: Unremarkable examination. DICTATED BY: MARLYN MARTEL MD DATE/TIME DICTATED:10/05/162344 SENIOR INFRASTRUCTURE ENGINEER:JOSE DATE/ TIME TRANSCRIBED:10/05/162344 CONFIDENTIAL, DO NOT COPY WITHOUT APPROPRIATE AUTHORIZATION. <Electronically signed in Other Vendor System> SIGNED BY: MARLYN MARTEL MD 10/05/16 4775 Initial ED EKG: none (SEVERINO PHAM,EILEEN) Departure Departure Disposition: HOME OR SELF CARE Condition: Stable Clinical Impression Primary Impression: Pleuritis Referrals: MIGUEL STANFORD,ROSALIO Casiano (PCP/Family) Additional Instructions: Take previously prescribed prednisone as directed. Take over the counter Ibuprofen for inflammation. Please take antibiotic as prescribed and for the full duration. take medication for cough as prescribed. Return for any worsening symptoms or concerns. Departure Forms: Customer Survey General Discharge Information Prescriptions: Current Visit Scripts Azithromycin 1 DP PO AD #6 TAB 2 the first day followed by 1 for days 2-5 Benzonatate (Tessalon Perle) 1 CAP PO TID PRN cough #12 CAP (EILEEN HAQ PA-C) PA/GAUGE CHECKER Co-Sign Statement Statement: ED Attending supervision documentation- [] I saw and evaluated the patient. I have also reviewed all the pertinent lab results and diagnostic results. I agree with the findings and the plan of care as documented in the PA's/GAUGE CHECKER's documentation. [X] I have reviewed the ED Record and agree with the PA's/GAUGE CHECKER's dXocumentation. [] Additions or exceptions (if any) to the PAs/GAUGE CHECKER's note and plan are summarized below: [] (EMMA STANFORD,ALLAN Xiong) Critical Care Note Critical Care Note Critical Care Time: non-applicable (EILEEN HAQ PA-C)
--- NOTE | 2016-10-05 23:49 | RADIOLOGY REPORT ---
EXAMINATION: XR CHEST CLINICAL INFORMATION: Cough. COMPARISON: None TECHNIQUE: 2 views of the chest were obtained. FINDINGS: No significant abnormality is noted involving the heart, lungs, mediastinum, bony thorax or soft tissues. IMPRESSION: Unremarkable examination.
[2016-10-05] MEDS ORDERED: TESSALON PERLE100 M1 PO (23:53)
[2016-10-05] MEDS ORDERED: AZITHROMYCIN250 M1 PO (23:53)
== END 2016-10-05 23:59 ==
LOC: ERH 22:33
DX: R09.1 Pleurisy (principal); R07.9 Chest pain, unspecified
CPT/HCPCS: 81025

== ENCOUNTER 2017-06-08 23:45 | Emergency (ER) | payer OTHER ==
[~2017-06-08] VITALS: Ht 147.3 cm; Wt 90.7 kg
[~2017-06-08 23:45] MED LIST changes: +AZITHROMYCIN250 M1 PO; +TESSALON PERLE100 M1 PO
[2017-06-09 00:08] VITALS: BP 140/63
--- NOTE | 2017-06-09 00:29 | ED GI/GU/ABDOMINAL COMPLAINT ---
History of Present Illness General Chief Complaint: General Adult Stated Complaint: "RECTAL ISSUES" PAINFUL PER PT Source: patient, family, old records Exam Limitations: no limitations Vital Signs & Intake/Output Vital Signs & Intake/Output Vital Signs Date Time Temp Pulse Resp B/P B/P Pulse O2 O2 Flow FiO2 Mean Ox Delivery Rate 06/09 0028 Room Air 06/09 0008 98.4 91 18 140/63 100 Room Air Allergies Coded Allergies: NO KNOWN ALLERGIES (07/01/16) Reconcile Medications Anusol Hc (Anusol-Hc) 25 MG SUPP.RECT 1 SUP RC BID hemorrhoid Aripiprazole (Abilify) 5 MG TABLET 1 TAB PO DAILY BIPOLAR (Reported) Azithromycin 250 MG TABLET 1 DP PO AD 2 the first day followed by 1 for days 2-5 Benzonatate (Tessalon Perle) 100 MG CAPSULE 1 CAP PO TID PRN cough Perphenazine 4 MG TABLET 4 MG PO D MENTAL HEALTH (Reported) Polyethylene Glycol 3350 (Miralax) 17 GRAM/DOSE POWDER 17 GM PO DAILY constipation mix with water, juice, soda, coffee or tea use until stools soft and regular Triage Note: TRIAGE: PATIENT REPORTS RECTAL PAIN X 1 WEEK, INTERMITTENTLTY. REPORTS "WAS CONSTIPATED ON EUGENIO AND TOOK STOOL SOFTENER WHICH HELPED." LAST MENSES 05/15/17, CURRENTLY TAKING BCP. Triage Nurses Notes Reviewed? yes LMP (ages 10-50): unknown ? n Is pt currently ? No Onset: 2 weeks Duration: week(s):, continues in ED Timing: recent history Quality/Severity: aching, mild Location: rectal Radiation: no radiation Activities at Onset: defecating Prior Abdominal Problems: none Past Sexual History: Unobtainable at this time Modifying Factors: Worsens With: defecating. HPI: 2 weeks prior to admission patient complains of constipation and straining at stool relieved with laxatives and stool softeners. Since this time she complains of rectal pain discomfort with defecating seeing blood on stool and toilet paper. Shows fever chills nausea vomiting diarrhea chest pain, shortness breath headache dysuria or rash. Past History Travel History Traveled to [place] past 21 day No Medical History Any Pertinent Medical History? 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 No Review of Systems Review of Systems Constitutional: Reports: no symptoms. EENTM: Reports: no symptoms. Respiratory: Reports: no symptoms. Cardiovascular: Reports: no symptoms. GI: Reports: see HPI, bloody stool, changes in stool. Genitourinary: Reports: no symptoms. Musculoskeletal: Reports: no symptoms. Skin: Reports: no symptoms. Neurological/Psychological: Reports: no symptoms. Hematologic/Endocrine: Reports: no symptoms. Immunologic/Allergic: Reports: no symptoms. All Other Systems: Reviewed and Negative Physical Exam Physical Exam General Appearance: well developed/nourished, alert, awake, anxious, comfortable , obese Head: atraumatic, normal appearance Eyes: Bilateral: normal appearance, PERRL, EOMI. Ears, Nose, Throat, Mouth: hearing grossly normal, moist mucous membrane Neck: normal inspection, supple, full range of motion, normal alignment Respiratory: normal breath sounds, chest non-tender, no respiratory distress, quiet respiration, lungs clear Cardiovascular: regular rate/rhythm, normal peripheral pulses, norml femoral pulses equa Peripheral Pulses: 4+ carotid (R), 4+ carotid (L) Gastrointestinal: normal bowel sounds, soft, non-tender, no organomegaly Rectal: hemmorrhoids (external 6:00) Back: normal inspection, normal range of motion Extremities: normal range of motion, no ligament instability Neurologic/Psych: no motor/sensory deficits, awake, alert, oriented x 3, normal gait, normal mood/affect, medical doctor nuclear medicine II-XII nml as tested Skin: intact, normal color, warm/dry Core Measures ACS in differential dx? No Sepsis Present: No Sepsis Focused Exam Completed? No Progress Differential Diagnosis: hemorrhoids Plan of Care: anusol Initial ED EKG: none Departure Departure Time of Disposition: 100 Disposition: HOME OR SELF CARE Condition: Stable Clinical Impression Primary Impression: External hemorrhoid Referrals: Becky STANFORD,Alva Casiano (PCP/Family) Departure Forms: Customer Survey General Discharge Information Prescriptions: Current Visit Scripts Anusol Hc (Anusol-Hc) 1 SUP RC BID #28 SUP Polyethylene Glycol 3350 (Miralax) 17 GM PO DAILY #255 GM mix with water, juice, soda, coffee or tea use until stools soft and regular
[2017-06-09] MEDS ORDERED: MIRALAX119 GM PO (01:02)
[2017-06-09] MEDS ORDERED: ANUSOL-HC25 M1 RC (01:02)
== END 2017-06-09 01:09 ==
LOC: ERH 23:45
DX: K64.4 Residual hemorrhoidal skin tags (principal)

== ENCOUNTER 2017-09-14 00:48 | Emergency (ER) | payer OTHER ==
[~2017-09-14] VITALS: Ht 147.3 cm; Wt 88.5 kg
[~2017-09-14 00:48] MED LIST changes: +ANUSOL-HC25 M1 RC; +MIRALAX119 GM PO; +PRILOSEC OTC20 M1 PO
[2017-09-14 00:53] VITALS: BP 112/69
--- NOTE | 2017-09-14 01:12 | ED HEADACHE COMPLAINT ---
History of Present Illness General Chief Complaint: General Adult Stated Complaint: BIBA, ANXIETY ATTACK Source: patient, family, old records, EMS Exam Limitations: no limitations Vital Signs & Intake/Output Vital Signs & Intake/Output Vital Signs Date Time Temp Pulse Resp B/P B/P Pulse O2 O2 Flow FiO2 Mean Ox Delivery Rate 09/14 0053 98.3 82 20 112/69 98 Room Air Allergies Coded Allergies: NO KNOWN ALLERGIES (07/01/16) Reconcile Medications Anusol Hc (Anusol-Hc) 25 MG SUPP.RECT 1 SUP RC BID hemorrhoid Aripiprazole (Abilify) 5 MG TABLET 1 TAB PO DAILY BIPOLAR (Reported) Azithromycin 250 MG TABLET 1 DP PO AD 2 the first day followed by 1 for days 2-5 Benzonatate (Tessalon Perle) 100 MG CAPSULE 1 CAP PO TID PRN cough Omeprazole Magnesium (Prilosec Otc) 20 MG TABLET.DR 1 TAB PO DAILY EACH DAY Perphenazine 4 MG TABLET 4 MG PO D MENTAL HEALTH (Reported) Polyethylene Glycol 3350 (Miralax) 17 GRAM/DOSE POWDER 17 GM PO DAILY constipation mix with water, juice, soda, coffee or tea use until stools soft and regular Triage Note: 21YO FEMALE TO [facility] VIA AMB W/CO HAVING " ANXIETY ATTACK. STATES HX OF DEPRESSION AND ANXIETY, SEEN HER PSYCH MD MON AND WAS PRESCRIBED INTUNIV AND ZOLOFT--ALSO STATES SHE HAS NO LMONEY TO GET PRESCRIPTIONS FILLED UNTIL MONDAY. Triage Nurses Notes Reviewed? yes : No Patient currently breastfeeds: No HPI: Patient brought in by ambulance complaining of a headache as well as an anxiety attack. Headache is been present for the past 4 days. There is no relief with Tylenol. The pain starts in the back of her neck and then radiates up behind her head and then around to the front. The pain is tightness in nature. There are no aggravating factors. She rates the headache at 610. There is no blurry vision. There is no photophobia. There are no fevers or chills. No nausea or vomiting. Patient states that tonight she developed an anxiety attack. Patient has a history of the same. This felt similar to prior anxiety attacks. Patient called 911. Patient states he anxiety attack resolved on the way to the emergency department the patient continues to have a headache. Past History Travel History Traveled to [place] past 21 day No Medical History Any Pertinent Medical History? see below for history Neurological: NONE EENT: NONE Cardiovascular: syncope Respiratory: asthma Gastrointestinal: NONE Hepatic: NONE Renal: NONE Musculoskeletal: NONE Psychiatric: anxiety, bipolar disease Endocrine: NONE Blood Disorders: NONE Cancer(s): NONE INFECTIOUS DISEASE PHYSICIAN/Reproductive: NONE Other Medical Hx: Insomnia Tetanus Vaccine: 07/17/16 Surgical History Surgical History: non-contributory Psychosocial History Who do you live with Friend Services at Home None What is your primary language Qatari Tobacco Use: Never used ETOH Use: denies use Illicit Drug Use: marijuana Family History Hx Contributory? No Review of Systems Review of Systems Constitutional: Reports: no symptoms. Eyes: Reports: no symptoms. Ears, Nose, Throat, Mouth: Reports: no symptoms. Respiratory: Reports: no symptoms. Cardiovascular: Reports: no symptoms. Gastrointestinal/Abdominal: Reports: no symptoms. Genitourinary: Reports: no symptoms. Musculoskeletal: Reports: no symptoms. Skin: Reports: no symptoms. Neurological/Psychological: Reports: see HPI, anxiety, headache. Hematologic/Endocrine: Reports: no symptoms. Endocrine: Reports: no symptoms. Immunologic/Allergic: Reports: no symptoms. All Other Systems: Reviewed and Negative Physical Exam Physical Exam General Appearance: well developed/nourished, alert, awake, anxious, mild distress Head: atraumatic, normal appearance Eyes: Bilateral: PERRL, EOMI. Ears, Nose, Throat: normal pharynx, normal ENT inspection, hearing grossly normal Neck: normal inspection, supple, full range of motion, MUSCLE SPASM ON RIGHT, PAIN RADIATES TO HEAD Respiratory: normal breath sounds, chest non-tender, no respiratory distress, lungs clear Cardiovascular: regular rate/rhythm, normal peripheral pulses Gastrointestinal: normal bowel sounds, soft, non-tender, no organomegaly Back: normal inspection, normal range of motion Extremities: normal inspection, normal capillary refill, normal range of motion, no edema Psychiatric: awake, alert, oriented x 3 Cranial Nerves: normal hearing, normal speech, PERRL Coordination/Gait: normal gait Motor/Sensory: no motor/sensory deficits Core Measures Sepsis Present: No Sepsis Focused Exam Completed? No Progress Differential Diagnosis: cluster JEAN, migraine JEAN, musculoskeletal pain, tension JEAN Plan of Care: Orders Procedure Date/time Status URINE 09/15 111 Complete URINALYSIS 09/15 111 Complete Laboratory Tests 09/14/17 0130: Urinalysis MOD H, Urine Color STRAW, Urine Clarity CLEAR, Urine pH 7.0, Ur Specific Weir 1.015, Urine Protein NEG, Urine Ketones NEG, Urine Nitrite NEG, Urine Bilirubin NEG, Urine Urobilinogen 0.2, Ur Leukocyte Esterase TRACE H, Ur Microscopic SEDIMENT EXAMINED, Urine RBC RARE, Urine WBC 3-5 H, Ur Epithelial Cells FEW, Urine Mucus FEW, Urine Hemoglobin NEG, Urine Glucose NEG, Urine Test NEGATIVE Departure Departure Disposition: HOME OR SELF CARE Condition: Stable Clinical Impression Primary Impression: Headache Secondary Impressions: Anxiety Referrals: Becky STANFORD,Alva Casiano (PCP/Family) Additional Instructions: REUTRN IF SYMPTOMS WORSEN OR FOR ANY CONCERNS Departure Forms: Customer Survey General Discharge Information
== END 2017-09-14 01:48 ==
LOC: ERH 00:48
DX: R51 Headache (principal); F41.9 Anxiety disorder, unspecified
CPT/HCPCS: 81001; 81025

== ENCOUNTER 2017-09-25 08:46 | Emergency (ER) | payer OTHER ==
[2017-09-25] MEDS ORDERED: ZOLOFT50 M1 PO (10:12)
[2017-09-25] MEDS ORDERED: INTUNIV1 M1 PO (10:13)
--- NOTE | 2017-09-25 10:46 | ED GENERAL ADULT ---
History of Present Illness General Chief Complaint: General Adult Stated Complaint: LEFT LEG CRAMPING, "STOOD UP AND COULDNT SEE" Source: patient Exam Limitations: no limitations Vital Signs & Intake/Output Vital Signs & Intake/Output Vital Signs Date Time Temp Pulse Resp B/P B/P Pulse O2 O2 Flow FiO2 Mean Ox Delivery Rate 09/25 1231 97.8 70 20 104/60 98 Room Air 09/25 1051 56 20 102/56 99 Room Air 09/25 0902 97.0 61 20 118/76 98 Allergies Coded Allergies: NO KNOWN ALLERGIES (07/01/16) Reconcile Medications Guanfacine HCl (Intuniv) 1 MG TAB.ER.24H 1 TAB PO QPM MENTAL HEALTH (Reported ) Sertraline HCl (Zoloft) 50 MG TABLET 1 TAB PO DAILY MENTAL HEALTH (Reported) Triage Note: PER PT LMP 06/15 NO CHANCE OF , ALSO LOSS OF APPETITE LAST REAL MEAL YESTERDAY AWOKE THIS AM WITH CRAMPS IN LEGS LIKE A REGGIE HORSE AND "PROBABLE DIARRHEA" STARTED ZOLOFT 2 WEEKS AGO. PT POOR HISTORIAN, POOR PERSONAL HYGIENE ARRIVES VIA EMS Triage Nurses Notes Reviewed? yes Onset: Gradual Duration: constant Timing: recent history Severity: mild Severity Numbers: 2 : No Patient currently breastfeeds: No HPI: Patient is a 21-year-old female with past medical history of anxiety and depression who presents emergency room with concerns of a 5-7 day history of decreased appetite concerns were today patient developed generalized lightheaded sensation and dizziness blurred vision upon standing up. Patient denies any new medications denies any illicit drug use alcohol use denies any suicide or homicide ideation, Denies any thoughts of harming herself. Denies any pain Patient was brought in by ambulance however states that while in the waiting room patient had 15 minutes of localized substernal chest pain that has complete resolved. Patient is on an oral contraceptive. Patient can tolerate by mouth denies any headache neck pain cough abdominal pain nausea vomiting dysuria hematuria. Denies any chance of . Past History Travel History Traveled to [place] past 21 day No Medical History Any Pertinent Medical History? see below for history Neurological: NONE EENT: NONE Cardiovascular: syncope Respiratory: asthma Gastrointestinal: NONE Hepatic: NONE Renal: NONE Musculoskeletal: NONE Psychiatric: anxiety, bipolar disease Endocrine: NONE Blood Disorders: NONE Cancer(s): NONE HOME THERAPY CLINICIAN/Reproductive: NONE Other Medical Hx: Insomnia Tetanus Vaccine: 07/17/16 Surgical History Surgical History: non-contributory Psychosocial History Who do you live with Friend Services at Home None What is your primary language Azerbaijani Tobacco Use: Never used Family History Hx Contributory? No Review of Systems Review of Systems Constitutional: Reports: see HPI. EENTM: Reports: no symptoms, see HPI. Respiratory: Reports: no symptoms. Cardiovascular: Reports: no symptoms. GI: Reports: no symptoms. Genitourinary: Reports: no symptoms. Musculoskeletal: Reports: no symptoms. Skin: Reports: no symptoms. Neurological/Psychological: Reports: no symptoms. Hematologic/Endocrine: Reports: no symptoms. Immunologic/Allergic: Reports: no symptoms. All Other Systems: Reviewed and Negative Physical Exam Physical Exam General Appearance: no apparent distress Head: atraumatic Eyes: Bilateral: normal appearance. Ears, Nose, Throat: normal ENT inspection Neck: normal inspection Respiratory: normal breath sounds, chest non-tender Cardiovascular: regular rate/rhythm Gastrointestinal: normal bowel sounds, soft, non-tender Extremities: normal inspection Core Measures ACS in differential dx? No CVA/TIA Diagnosis: No Sepsis Present: No Sepsis Focused Exam Completed? No Progress Differential Diagnoses I considered the following diagnoses in my evaluation of the patient: [ANXIETY, DEPRESSION, DEHYDRATION, , ELECTROLYTE ABNORMALITY, ] Plan of Care: Orders Procedure Date/time Status Regular Diet 09/25 L Active TROPONIN LEVEL 09/25 1056 Complete D-DIMER 09/25 1049 Complete EKG 09/25 1049 Active MAGNESIUM 09/25 1046 Complete HUMAN BETA HCG SCREEN 09/25 1046 Complete COMPREHENSIVE METABOLIC PANEL 09/25 1046 Complete CBC WITHOUT DIFFERENTIAL 09/25 1046 Complete Laboratory Tests 09/25/17 1105: D-Dimer High Sensitivty < 200 09/25/17 1056: Anion Gap 12, Estimated GFR > 60, BUN/Creatinine Ratio 13.8, Glucose 89, Calcium 9.5, Magnesium 2.1, Total Bilirubin 0.5, AST 20, ALT 32, Alkaline Phosphatase 74 , Troponin I < 0.01, Total Protein 6.9, Albumin 4.2, Globulin 2.7, Albumin/ Globulin Ratio 1.6, Total Beta HCG NEGATIVE, CBC w Diff NO MAN DIFF REQ, RBC 4.92, MCV 79.5 L, MCH 27.8, MCHC 35.0, RDW 12.5, MPV 9.2, Gran % 60.3, Lymphocytes % 31.9, Monocytes % 5.3, Eosinophils % 1.8, Basophils % 0.7, Absolute Granulocytes 5.1, Absolute Lymphocytes 2.7, Absolute Monocytes 0.4, Absolute Eosinophils 0.2, Absolute Basophils 0.1 09/25/17 1049: Troponin I Cancelled In no apparent distress resting comfortably at bedside on her phone. Patient has unremarkable physical exam EKG blood work was obtained no acute findings patient was able tolerate by mouth Pre-Hospital EKG: normal intervals, normal p-waves, 58 BPM,NSR Initial ED EKG: normal intervals, normal p-waves, 58 BPM,NSR Departure Departure Disposition: HOME OR SELF CARE Condition: Stable Clinical Impression Primary Impression: Dizziness Secondary Impressions: Chest pain Referrals: Becky STANFORD,Alva Casiano (PCP/Family) Additional Instructions: As discussed begin drinking plenty of water for hydration and a well healthy balanced dietary intake, if no better on Monday follow-up with your primary care doctor, symptoms worsen return to emergency room, continue home medications as directed Departure Forms: Customer Survey General Discharge Information Critical Care Note Critical Care Note Critical Care Time: non-applicable
[2017-09-25 11:02] LABS: ABSOLUTE BASOPHIL COUNT 0.1 /CUMM (0.0-0.2); ABSOLUTE EOSINOPHIL COUNT 0.2 /CUMM (0.0-0.7); ABSOLUTE GRANULOCYTE CT 5.1 /CUMM (1.4-6.5); ABSOLUTE LYMPH COUNT 2.7 /CUMM (1.2-3.4); ABSOLUTE MONOCYTE COUNT 0.4 /CUMM (0.10-0.60); BASOPHIL % 0.7 % (0.0-2.0); EOSINOPHIL % 1.8 % (0-5); GRANULOCYTE % 60.3 % (42.2-75.2); HEMATOCRIT 39.1 % (37-47); MEAN CORPUSCULAR HGB 27.8 PG (27.0-31.0); MEAN CORPUSCULAR VOLUME 79.5 FL (81.0-99.0); MEAN PLATELET VOLUME 9.2 FL (7.4-10.4); PLATELET COUNT 226 /CUMM (130-400); RBC DISTRIBUTION WIDTH 12.5 % (11.5-14.5); RED BLOOD CELL CT 4.92 /CUMM (4.20-5.40); WHITE BLOOD CELL COUNT 8.5 /CUMM (4.8-10.8)
[2017-09-25 12:31] VITALS: BP 104/60
[2017-10-28] MEDS ORDERED: PREDNISONE50 M1 PO (00:39)
[2017-10-28] MEDS ORDERED: VALTREX1000 MG PO (00:39)
== END 2017-09-25 12:40 ==
LOC: ERH 08:46
PROVIDERS: Physician Assistant
DX: R07.9 Chest pain, unspecified (principal); R42 Dizziness and giddiness
CPT/HCPCS: 93005; 93010

== ENCOUNTER 2017-12-12 00:16 | Emergency (ER) | payer OTHER ==
[~2017-12-12] VITALS: Ht 147.3 cm; Wt 85.7 kg
[~2017-12-12 00:16] MED LIST changes: +INTUNIV1 M1 PO; +PREDNISONE50 M1 PO; +VALTREX1000 MG PO; +ZOLOFT50 M1 PO
--- NOTE | 2017-12-12 01:35 | ED GENERAL ADULT ---
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 +DIARRHEA W/ GREEN STOOL X 1-2 WEEKS, 2.+SOB X 1-2 HOURS TONIGHT, 3. 'FEELING SEVERLY COLD AND SHIVERING.' 4. TEMP 99.9 5. HEADACHE SINCE YESTERDAY, 'TOOK IBUPROFEN DIDN'T HELP 6. R LEG JOINT PAIN INTERMITTENT X FEW WEEKS. 7. MIDDLE STOMACH PAIN SINCE 6-7PM TONIGHT. Triage Nurses Notes Reviewed? yes : No Patient currently breastfeeds: No HPI: Patient presents to the emergency department with a multitude of complaints. First complaint is diarrhea with green stool that is intermittent over the past few weeks. Patient states that there are days that she'll go to 3 times and other days where she will go at all. Patient's second complaint is headache that she's had since yesterday. Patient states that he is throbbing in nature is in the frontal area. There is no radiation. Patient states the headache goes away after she takes ibuprofen but then a few hours later comes back. She denies any blurry vision. She is also getting diffuse body aches. The body aches have been constant since last week. There is no radiation. There is no aggravating or mitigating factors. She states that she occasionally feels nauseous. Patient also states that earlier today she had a transient episode of shortness of breath. That lasted less than 10 minutes and resolved on its own. Past History Travel History Traveled to [place] past 21 day No Medical History Any Pertinent Medical History? 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 No Review of Systems Review of Systems Constitutional: Reports: see HPI, chills. EENTM: Reports: no symptoms. Respiratory: Reports: see HPI, short of breath. Cardiovascular: Reports: no symptoms. GI: Reports: see HPI, diarrhea, nausea. Genitourinary: Reports: no symptoms. Musculoskeletal: Reports: see HPI. Skin: Reports: no symptoms. Neurological/Psychological: Reports: see HPI, headache. Hematologic/Endocrine: Reports: no symptoms. Immunologic/Allergic: Reports: no symptoms. All Other Systems: Reviewed and Negative Physical Exam Physical Exam General Appearance: well developed/nourished, alert, awake, anxious, mild distress Head: atraumatic, normal appearance Eyes: Bilateral: PERRL, EOMI. Ears, Nose, Throat: normal pharynx, normal ENT inspection, hearing grossly normal Neck: normal inspection, supple, full range of motion Respiratory: normal breath sounds, chest non-tender, no respiratory distress, lungs clear Cardiovascular: regular rate/rhythm, normal peripheral pulses Gastrointestinal: normal bowel sounds, soft, non-tender, no organomegaly Back: normal inspection, normal range of motion Extremities: normal inspection, normal capillary refill, normal range of motion, no edema Neurologic/Psych: no motor/sensory deficits, awake, alert, oriented x 3, normal gait, normal mood/affect Skin: intact, normal color, warm/dry Lymphatic: no anterior cervical chante Core Measures ACS in differential dx? No CVA/TIA Diagnosis: No Sepsis Present: No Sepsis Focused Exam Completed? No Progress Differential Diagnoses I considered the following diagnoses in my evaluation of the patient: [ Electrolyte abnormality, dehydration, tension headache, anemia, C. difficile] Plan of Care: Orders Procedure Date/time Status C.DIFFICILE 12/12 134 Active URINALYSIS 12/12 133 Complete LIPASE 12/12 133 Complete HUMAN BETA HCG SCREEN 12/12 133 Complete COMPREHENSIVE METABOLIC PANEL 12/12 133 Complete CBC WITHOUT DIFFERENTIAL 12/12 133 Complete AMYLASE 12/12 133 Complete EKG 12/12 110 Active Laboratory Tests 12/12/17 0318: Urinalysis LIGHT H, Urine Color YEL, Urine Clarity HAZY H, Urine pH 6.5, Ur Specific [place] 1.010, Urine Protein NEG, Urine Ketones NEG, Urine Nitrite NEG, Urine Bilirubin NEG, Urine Urobilinogen 0.2, Ur Leukocyte Esterase LARGE H, Ur Microscopic SEDIMENT EXAMINED, Urine RBC 1-3, Urine WBC 25-50 H, Ur Epithelial Cells MOD H, Urine Bacteria FEW H, Micro UA Comment [place] YEAST H, Urine Hemoglobin SMALL H, Urine Glucose NEG 12/12/17 0153: Anion Gap 10, Estimated GFR > 60, BUN/Creatinine Ratio 12.5, Glucose 120 H, Calcium 9.3, Total Bilirubin 0.4, AST 33, ALT 40, Alkaline Phosphatase 69, Total Protein 6.9, Albumin 3.9, Globulin 3.0, Albumin/Globulin Ratio 1.3, Amylase 48, Lipase 70, Total Beta HCG NEGATIVE, CBC w Diff NO MAN DIFF REQ, RBC 4.84, MCV 79.4 L, MCH 27.9, MCHC 35.2, RDW 12.9, MPV 8.5, Gran % 68.0, Lymphocytes % 21.9 , Monocytes % 8.1, Eosinophils % 1.5, Basophils % 0.5, Absolute Granulocytes 4.7 , Absolute Lymphocytes 1.5, Absolute Monocytes 0.6, Absolute Eosinophils 0.1, Absolute Basophils 0 Microbiology 12/12 134 STOOL: Clostridium difficile Toxin A & B - ORD Initial ED EKG: NSR, no ST T wave changes Comments: Patient is feeling better after fluids and meds in the emergency department. Patient has been unable to provide a stool sample. Departure Departure Disposition: HOME OR SELF CARE Condition: Stable Clinical Impression Primary Impression: Headache Secondary Impressions: Nausea & vomiting Referrals: Becky STANFORD,Alva Casiano (PCP/Family) Additional Instructions: RETURN FOR ANY CONCERNS Departure Forms: Customer Survey General Discharge Information Critical Care Note Critical Care Note Critical Care Time: non-applicable
[2017-12-12 02:04] LABS: ABSOLUTE BASOPHIL COUNT 0 /CUMM (0.0-0.2); ABSOLUTE EOSINOPHIL COUNT 0.1 /CUMM (0.0-0.7); ABSOLUTE GRANULOCYTE CT 4.7 /CUMM (1.4-6.5); ABSOLUTE LYMPH COUNT 1.5 /CUMM (1.2-3.4); ABSOLUTE MONOCYTE COUNT 0.6 /CUMM (0.10-0.60); BASOPHIL % 0.5 % (0.0-2.0); EOSINOPHIL % 1.5 % (0-5); HEMATOCRIT 38.4 % (37-47); MEAN CORPUSCULAR HGB 27.9 PG (27.0-31.0); MEAN CORPUSCULAR HGB CONC 35.2 G/DL (33.0-37.0); MEAN CORPUSCULAR VOLUME 79.4 FL (81.0-99.0); MEAN PLATELET VOLUME 8.5 FL (7.4-10.4); PLATELET COUNT 228 /CUMM (130-400); RBC DISTRIBUTION WIDTH 12.9 % (11.5-14.5); RED BLOOD CELL CT 4.84 /CUMM (4.20-5.40); WHITE BLOOD CELL COUNT 6.9 /CUMM (4.8-10.8)
[2017-12-12 04:10] VITALS: BP 112/68
== END 2017-12-12 04:19 ==
LOC: ERH 00:16
PROVIDERS: Emergency Medicine
DX: R11.2 Nausea with vomiting, unspecified (principal); R51 Headache
CPT/HCPCS: 81001; 93005; 93010; 96374; 96375; J1885; J2405

== ENCOUNTER 2018-01-03 20:45 | Emergency (ER) | payer OTHER ==
[~2018-01-03] VITALS: Ht 149.9 cm; Wt 87.1 kg
--- NOTE | 2018-01-03 20:56 | ED MVC/FALL/TRAUMA COMPLAINT ---
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 PT HAS PAIN TO HER LOWER BACK AFTER FALLING. DENIES NUMBNESS TINGLING OR LOSS MOVEMENT. DENIES HITTING HEAD Triage Nurses Notes Reviewed? yes Onset: Abrupt Duration: constant Timing: single episode today Severity: moderate Severity Numbers: 5 : No Patient currently breastfeeds: No HPI: Patient is a 22-year-old female who presents emergency room in which she was and laying down steps patient misstepped and fell down a proximal 25 stairs resulting acute onset of localized sacral coccyx pain and left upper arm pain. Patient denies any alcohol use denies any head strike denies any neck or low back pain. Denies any saddle paresthesia or bowel bladder incontinence or lower extremity pain (Branden Jay) Past History Travel History Traveled to [place] past 21 day No Medical History Any Pertinent Medical History? 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 No (Branden Jay) Review of Systems Review of Systems Constitutional: Reports: no symptoms. Eyes: Reports: no symptoms. Ears, Nose, Throat, Mouth: Reports: no symptoms. Respiratory: Reports: no symptoms. Cardiovascular: Reports: no symptoms. Gastrointestinal/Abdominal: Reports: no symptoms. Genitourinary: Reports: no symptoms. Musculoskeletal: Reports: see HPI. Skin: Reports: see HPI. Neurological/Psychological: Reports: no symptoms. All Other Systems: Reviewed and Negative (Branden Jay) Physical Exam Physical Exam General Appearance: no apparent distress, obese Head: atraumatic Eyes: Bilateral: normal appearance. Ears, Nose, Throat, Mouth: moist mucous membrane Neck: full range of motion, no midline tenderness Respiratory: no respiratory distress Cardiovascular: regular rate/rhythm Gastrointestinal: soft, non-tender Back: normal inspection Extremities: normal range of motion Neurologic/Psych: no motor/sensory deficits, oriented x 3, normal gait Skin: intact Comments: Extremities bilateral lower extremity myotomes dermatomes DTRs intact Diagram Body: 1) Normal inspection noted sacral and coccyx point tenderness 2) Noted medial left humeral point tenderness and ecchymosis skin intact Full active range of motion with shoulder elbow and wrist dermatomes intact Core Measures ACS in differential dx? No CVA/TIA Diagnosis No Sepsis Present: No Sepsis Focused Exam Completed? No (Branden Jay) Progress Differential Diagnosis: abd injury, C/T/L spine injury, ext injury, ICH, pelvis injury, pnemothorax, spinal cord injury Plan of Care: Orders Procedure Date/time Status URINE 01/04 2136 Complete Laboratory Tests 01/03/182137: Urine Test NEGATIVE No central spinous tenderness no lumbar spine tenderness patient was neurovascular intact to extremities, patient will obtain x-rays where she was point tender 2238 patient on reevaluation still resting comfortably has complete resolution of nausea Pain improved x-rays pending X-rays were resulted showing no concerns osseous injury discussed results with patient patient had normal steady gait on discharge Diagnostic Imaging: Viewed by Me: Radiology Read. Radiology Impression: no acute abnormality, no fracture, no dislocation Comments: ATIENT: NICHOLAS FAUST PRESENT AGE: 22 PATIENT ACCOUNT NO: [id number] : 93 LOCATION: [facility] ORDERING PHYSICIAN: Branden STANLEY SERVICE DATE: 01/03/18 EXAM TYPE: RAD - XRY-HUMERUS, LEFT EXAMINATION: XR HUMERUS, LEFT CLINICAL INFORMATION: Fall with left humeral pain. COMPARISON: None TECHNIQUE: AP and lateral views of the left humerus. FINDINGS: The bones and soft tissues are normal. No fracture. Imaged portions of the shoulder and elbow are unremarkable. IMPRESSION: No fracture or malalignment. DICTATED BY: Arron To MD DATE/TIME DICTATED:01/03/182234 CARGO SERVICE AGENT:JOSE DATE/TIME TRANSCRIBED:01/03/18 PATIENT: NICHOLAS FAUST PRESENT AGE: 22 PATIENT ACCOUNT NO: [id number] : 93 LOCATION: [facility] ORDERING PHYSICIAN: Branden STANLEY SERVICE DATE: 01/03/18 EXAM TYPE: RAD - XRY-SACRUM AND COCCYX EXAMINATION: XR SACRUM AND COCCYX CLINICAL INFORMATION: Fall with sacral pain COMPARISON: None TECHNIQUE: 3 views of the sacrum/coccyx FINDINGS: No fracture or cortical disruption. Alignment of the coccyx is maintained. The sacroiliac joints are intact. The sacral arcs appear intact. The bowel gas pattern is unremarkable. The hips are appropriately aligned. The pelvic rim is intact. The bowel gas pattern is unremarkable. IMPRESSION: No evidence of sacral or coccygeal fracture. DICTATED BY: Arron To MD DATE/TIME DICTATED:01/03/182235 CARGO SERVICE AGENT:JOSE DATE/TIME TRANSCRIBED:01/03/182235 (Branden Jay) Departure Departure Disposition: HOME OR SELF CARE Condition: Stable Clinical Impression Primary Impression: Sacral contusion Secondary Impressions: Contusion of left arm, Fall Referrals: Becky STANFORD,Alva Casiano (PCP/Family) Ankit Grimes MD Additional Instructions: As discussed begin ibuprofen for pain as directed, begin icing 20 minutes every 2 hours, if no better in one week follow-up with orthopedic Dr. Grimes or your primary care doctor. If symptoms worsen return to emergency room Departure Forms: Customer Survey General Discharge Information (Branden Jay) PA/BEHAVIORAL THERAPY COORDINATOR Co-Sign Statement Statement: ED Attending supervision documentation- I saw and evaluated the patient. I have also reviewed all the pertinent lab results and diagnostic results. I agree with the findings and the plan of care as documented in the PA's/BEHAVIORAL THERAPY COORDINATOR's documentation. x I have reviewed the ED Record and agree with the PA's/BEHAVIORAL THERAPY COORDINATOR's documentation. [] Additions or exceptions (if any) to the PAs/BEHAVIORAL THERAPY COORDINATOR's note and plan are summarized below: [] (Remington STANFORD,Jeffy)
--- NOTE | 2018-01-03 22:39 | RADIOLOGY REPORT ---
EXAMINATION: XR HUMERUS, LEFT CLINICAL INFORMATION: Fall with left humeral pain. COMPARISON: None TECHNIQUE: AP and lateral views of the left humerus. FINDINGS: The bones and soft tissues are normal. No fracture. Imaged portions of the shoulder and elbow are unremarkable. IMPRESSION: No fracture or malalignment.
--- NOTE | 2018-01-03 22:40 | RADIOLOGY REPORT ---
EXAMINATION: XR SACRUM AND COCCYX CLINICAL INFORMATION: Fall with sacral pain COMPARISON: None TECHNIQUE: 3 views of the sacrum/coccyx FINDINGS: No fracture or cortical disruption. Alignment of the coccyx is maintained. The sacroiliac joints are intact. The sacral arcs appear intact. The bowel gas pattern is unremarkable. The hips are appropriately aligned. The pelvic rim is intact. The bowel gas pattern is unremarkable. IMPRESSION: No evidence of sacral or coccygeal fracture.
[2018-01-03 23:00] VITALS: BP 118/69
== END 2018-01-03 23:02 ==
LOC: ERH 20:45
DX: S30.0XXA Contusion of lower back and pelvis, initial encounter (principal); S40.022A Contusion of left upper arm, initial encounter; W10.9XXA Fall (on) (from) unspecified stairs and steps, initial encounter; Y92.9 Unspecified place or not applicable; Y93.9 Activity, unspecified
CPT/HCPCS: 72220; 73060-LT; 81025; J3101